=== PATIENT | male | born 1960 | race Caucasian/White ===

== ENCOUNTER 2019-12-02 06:51 | Day surgery (SDC) | payer MEDICARE ==
[~2019-12-02] VITALS: Ht 165.1 cm; Wt 66.9 kg
[2019-12-02] MEDS ORDERED: SODIUM CHLORIDE 0.9% 1,000 ML IV SCH (07:37)
[2019-12-02 07:44] VITALS: BP 116/74
[2019-12-02] MEDS ORDERED: PLEASE ENTER HEIGHT AND WEIGHT MC SCH (08:00)
[2019-12-02] MEDS ORDERED: FENTANYL PF 100 MCG/2ML ONE (08:21)
[2019-12-02] MEDS ORDERED: NALOXONE 1 MG/ML, 2ML ONE (08:22)
[2019-12-02] MEDS ORDERED: FLUMAZENIL 0.1 MG/1 ML, 5ML ONE (08:22)
[2019-12-02] MEDS ORDERED: MIDAZOLAM 1 MG/ML, 5ML ONE (08:22)
[2019-12-02 08:44] LABS: INTERNATIONAL NORMALIZED RATIO 0.94 (0.93-1.1)
== END 2019-12-02 10:20 | disposition home or self-care (01) ==
LOC: OUT 06:51
PROVIDERS: ATTEND Internal Medicine Nephrology
DX: N18.3 Chronic kidney disease, stage 3 (moderate) (principal); N28.1 Cyst of kidney, acquired; N17.9 Acute kidney failure, unspecified; N26.9 Renal sclerosis, unspecified; Z79.01 Long term (current) use of anticoagulants; Z88.8 Allergy status to other drugs, medicaments and biological substances; Z89.612 Acquired absence of left leg above knee; Z90.2 Acquired absence of lung [part of]; Z82.3 Family history of stroke; Z84.1 Family history of disorders of kidney and ureter
CPT/HCPCS: 36415; 50200; 77012; 85610; 88300; 99156; 99157; J2250; J3010; J2310